=== PATIENT | male | born 1940 | race Caucasian/White ===

== ENCOUNTER → 2018-09-28 | Outpatient (CLI) | payer OTHER ==
[~2018-09-28] MED LIST: ACETYLCYST1000 MG/10 PO; AEROBID7 GM IH; ALLOPURINOL 30300 M2 PO; ANTACID300 MG PO; ANTACID500 MG PO; ASMANEX INH; ASPIR 8181 MG PO; ASPIRIN325 PO; ATENOLOL 25 MG25 M1 PG; B12INJ SQ; CELEXA20 MG PO; DEMADEX20 MG; FORADIL12 MCG IH; FUROSEMIDE 80 M80 M1 PO; KLOR-CON 10 ER10 MEQ PO; LEVOTHYROXINE 0.1 MG PO; LISINOPRIL10 MG PO; METOLAZONE 5 MG5 M1 PO; MULTIVITAMINS PO; OMEGA-3 FISH O1 EAC3 PO; PRILOSEC 20 MG20 MG PO; PROVENTIL HFA6.7 G1 IH; PROVENTIL17 G1 IH; SIMVASTATIN80 MG PO; SYMBICORT80 MCG/4.1 INH; SYNTHROID100 MCG PO; TOPROL XL25 MG PO; VITAMIN D2000 UNIT PO
== END ==
LOC: CAT 10:05
DX: I25.10 Atherosclerotic heart disease of native coronary artery without angina pectoris (principal); K80.80 Other cholelithiasis without obstruction; K76.9 Liver disease, unspecified; R91.8 Other nonspecific abnormal finding of lung field; R59.9 Enlarged lymph nodes, unspecified; R93.89 Abnormal findings on diagnostic imaging of other specified body structures

== ENCOUNTER → 2020-01-26 | Outpatient (CLI) | payer OTHER | LOC: RAD 11:51 | DX: J98.11 Atelectasis (principal); J44.9 Chronic obstructive pulmonary disease, unspecified ==

== ENCOUNTER → 2020-04-11 | Outpatient (CLI) | payer OTHER | LOC: RAD 13:48 | PROVIDERS: ATTEND Internal Medicine | DX: J90 Pleural effusion, not elsewhere classified (principal); R91.8 Other nonspecific abnormal finding of lung field; J44.9 Chronic obstructive pulmonary disease, unspecified ==

== ENCOUNTER → 2020-11-12 | Outpatient (CLI) | payer OTHER | LOC: RAD 14:24 | PROVIDERS: ATTEND Internal Medicine | DX: J44.9 Chronic obstructive pulmonary disease, unspecified (principal) ==

== ENCOUNTER → 2020-12-06 | Outpatient (CLI) | payer OTHER | LOC: RAD 11:49 | PROVIDERS: ATTEND Internal Medicine | DX: J90 Pleural effusion, not elsewhere classified (principal); R91.8 Other nonspecific abnormal finding of lung field ==

== ENCOUNTER → 2021-04-01 | Outpatient (CLI) | payer OTHER | LOC: RAD 12:38 | PROVIDERS: ATTEND Internal Medicine | DX: J90 Pleural effusion, not elsewhere classified (principal); J98.11 Atelectasis; J44.9 Chronic obstructive pulmonary disease, unspecified ==

== ENCOUNTER → 2021-04-10 | Outpatient (CLI) | payer OTHER | LOC: CAT 10:02 | PROVIDERS: ATTEND Internal Medicine | DX: J90 Pleural effusion, not elsewhere classified (principal); I70.0 Atherosclerosis of aorta; I27.20 Pulmonary hypertension, unspecified; I77.810 Thoracic aortic ectasia; I51.7 Cardiomegaly; I25.10 Atherosclerotic heart disease of native coronary artery without angina pectoris; J84.10 Pulmonary fibrosis, unspecified; K74.69 Other cirrhosis of liver; K80.20 Calculus of gallbladder without cholecystitis without obstruction; R16.2 Hepatomegaly with splenomegaly, not elsewhere classified; M25.78 Osteophyte, vertebrae; R18.8 Other ascites ==